=== PATIENT | female | born 1945 | race Caucasian/White ===

== ENCOUNTER 2016-05-03 20:41 | Emergency (ER) | payer OTHER ==
[2016-05-03] MEDS ORDERED: AFRIN NASAL SPRAY NAS ONE (20:59)
[2016-05-03] MEDS ORDERED: AFRIN NASAL SPRAY ONE (21:01)
[2016-05-03] MEDS ORDERED: SILVER NITRATE APPLICATOR TOP ONE (21:11)
--- NOTE | 2016-05-03 21:16 | PROVIDER DOCUMENTATION ---
HPI-EENT General - General Chief Complaint: Nose Bleed Stated Complaint: NOSE BLEEDING Time Seen by Provider: 05/03/16 20:52 Source: patient Allergies/Adverse Reactions: Patient Allergies Allergy/AdvReac Type Severity Reaction Status Date / Time codeine Allergy Mild choke Verified 05/03/15 19:06 Neuromuscular Blockers, Allergy Unknown Verified 05/03/15 19:06 Steroidal [Steroidal Neuromuscular Blockers] - History of Present Illness-EENT General Nature of Presenting Problem: 70 yo F presents to the ER with complaint of a bloody nose since this AM. Pt had a similar problem last week and went to [facility] and was given zpac. Pt finished zpac 2 days ago and got a bloody nose today. Pt has no other complaints. EENT Location: reports: nose Severity: reports: mild Onset/Duration: reports: just prior to arrival Timing: reports: still present Prearrival Treatment: Initiated nasal packing Associated Symptoms: reports: denies symptoms - Nose Nose Problem Symptoms: nosebleed Review of Systems - Adult - REVIEW OF SYSTEMS - ADULT Constitutional: denies: chills, fever Ears, Nose, Mouth & Throat: reports: see HPI, other (bloody nose) Cardiovascular: denies: chest pain, palpitations Respiratory: denies: cough, shortness of breath Past History - Adult - PAST MEDICAL HISTORY-ADULT Review of Records: reports: Old Records Reviewed, Nursing Assessment Review, Medications Reviewed Cardiovascular: reports: HTN Neurological: reports: Multiple Sclerosis - PRIOR SURGERIES/PROCEDURES Surgical/Procedure History: reports: BTL, , tonsillectomy, orthopedic ( extremity) - IMMUNIZATION STATUS Childhood Immunizations: See Nurse Assessment Flu Vaccine: See Nurse Assessment Physical Exam- EENT - Physical Exam EENT Initial Vital Signs Reviewed: Yes General Appearance: appears well, alert Nasal Exam: active bleeding (R nostril) Neck: non-tender, supple Respiratory: chest non-tender, lungs clear Abdominal Exam: normal bowel sounds, non tender, soft Lymphatic: no adenopathy Progress - PLAN OF CARE/RESULTS Progress/Plan/Lab Results: Vital Signs Temp Pulse Resp BP Pulse Ox 05/03/16 20:45 98.5 F 100 H 18 162/85 100 codeine Allergy (Mild, Verified 05/03/15 19:06) choke Neuromuscular Blockers, Steroidal [Steroidal Neuromuscular Blockers] Allergy ( Verified 01/07/16 19:06) Unknown Amlodipine [Norvasc] 5 mg PO BID #0 tablet 03/14/14 Labetalol [Trandate] 300 mg PO BID #0 tablet 03/14/14 Spironolactone [Aldactone] 25 mg PO DAILY #0 tablet 03/14/14 Procedures - ENT PROCEDURES Epistaxis Management: Right Inspection: Headlamp Cauterized with Silver Nitrate?: Yes Other Nasal Packing: Gauze Departure - Departure Time of Disposition Order: 22:48 DIAGNOSIS: Epistaxis Disposition: HOME 01 Certified Medical Emergency: Emergent Condition: Good Additional Instructions: Remove in 24 hrs ED Follow Up Instructions: You have been treated by a care provider in the Emergency Department. These instructions are being provided to you so you can have an understanding of how to care for yourself upon discharge. Upon discharge from the Emergency Department, you are responsible for making arrangements for follow-up care by a physician of your choice. Take all prescribed medications as directed. Return to the Emergency Department immediately for any new or worsening symptoms. You may call the Physician Referral phone number at [phone] to obtain a list of Physicians who are taking new patients. Attestation - Scribe Verification/Attestation Scribe:: Eliseo Shelton Acting as Scribe for:: Herbie Peñaloza Scribbrandon documention review:: This chart was documented by a scribe and accurately reflects the service the provider performed and the decisions made by the provider.
[2016-05-03 23:38] VITALS: BP 173/093
== END 2016-05-03 23:39 | disposition home or self-care (01) ==
LOC: P.ED 20:41
DX: R04.0 Epistaxis (principal); I10 Essential (primary) hypertension; G35 Multiple sclerosis; Z79.899 Other long term (current) drug therapy
CPT/HCPCS: 99282